=== PATIENT | female | born 1955 | race Caucasian/White ===

== ENCOUNTER 2021-03-19 09:57 | Outpatient (REF) | payer OTHER, SELFPAY ==
--- NOTE | ~2021-03-19 | MM_ITS ---
EXAMINATION: MM SCREENING DIGITAL BREAST TOMOSYNTHESIS, BILATERAL CLINICAL INFORMATION: Screening. Asymptomatic. The lifetime risk of breast cancer based on the Tyrer-Cuzick Model is 5.9%. COMPARISON: Mammography: September 09, 2019 and studies dating back to June 30, 2015 TECHNIQUE: Digital breast tomosynthesis is performed in both the craniocaudal and mediolateral oblique views along with computer-aided detection (CAD). Synthesized 2D images are generated from the tomosynthesis. FINDINGS: The breasts are heterogeneously dense, which may obscure small masses (ACR BI-RADS breast composition Category c). There are no significant masses, abnormal calcifications, or other abnormalities. MM/MM tomosynthesis screening BI IMPRESSION: There are no significant changes from prior study. ASSESSMENT: BI-RADS 1: Negative RECOMMENDATION: Routine annual mammography screening. This patient's information was entered into a reminder system with a target due date for their next mammogram.
== END 2021-03-19 09:58 | disposition home or self-care (01) ==
LOC: HO.MAMMO 09:57
PROVIDERS: PCP Internal Medicine; Visit Provider Internal Medicine
DX: Z12.31 Encounter for screening mammogram for malignant neoplasm of breast (principal)
CPT/HCPCS: 77063; 77067

== ENCOUNTER 2022-03-21 10:21 | Outpatient (REF) | payer OTHER, SELFPAY ==
--- NOTE | ~2022-03-21 | MM_ITS ---
EXAMINATION: MM SCREENING DIGITAL BREAST TOMOSYNTHESIS, BILATERAL CLINICAL INFORMATION: Screening. Asymptomatic. The lifetime risk of breast cancer based on the Tyrer-Cuzick Model is 5%. COMPARISON: Mammography: 03/19/2021, 09/09/2019, 09/05/2018, 09/02/2017 TECHNIQUE: Digital breast tomosynthesis is performed in both the craniocaudal and mediolateral oblique views along with computer-aided detection (CAD). Synthesized 2D images are generated from the tomosynthesis. FINDINGS: There are scattered areas of fibroglandular density (ACR BI-RADS breast composition Category b). There are scattered minor bilateral asymmetries similar to prior studies. There are scattered shifting fibroglandular parenchymal densities related to positioning. There is no significant mass or developing density or interval architectural abnormality. Intramammary nodes are again noted bilateral upper outer quadrants. No abnormal calcifications. Skin contours are smooth. MM/MM tomosynthesis screening BI IMPRESSION: No significant changes from prior studies. ASSESSMENT: BI-RADS 2: Benign RECOMMENDATION: Routine annual mammography screening. This patient's information was entered into a reminder system with a target due date for their next mammogram.
== END 2022-03-21 10:22 | disposition home or self-care (01) ==
LOC: HO.MAMMO 10:21
PROVIDERS: PCP Internal Medicine; Visit Provider Internal Medicine
DX: Z12.31 Encounter for screening mammogram for malignant neoplasm of breast (principal)
CPT/HCPCS: 77063; 77067

== ENCOUNTER 2023-04-19 13:47 | Outpatient (REF) | payer MEDICARE, SELFPAY ==
--- NOTE | ~2023-04-19 | MM_ITS ---
EXAMINATION: MM SCREENING DIGITAL BREAST TOMOSYNTHESIS, BILATERAL CLINICAL INFORMATION: Screening. Asymptomatic. The lifetime risk of breast cancer based on the Tyrer-Cuzick Model is 5%. COMPARISON: Mammography: 03/21/2022, 03/19/2021, 09/09/2019, 09/05/2018 TECHNIQUE: Digital breast tomosynthesis is performed in both the craniocaudal and mediolateral oblique views along with computer-aided detection (CAD). Synthesized 2D images are generated from the tomosynthesis. FINDINGS: There are scattered areas of fibroglandular density (ACR BI-RADS breast composition Category b). Parenchymal pattern is similar to prior studies and there is no developing density or architectural abnormality. Scattered minor asymmetries are similar to prior exams. Again, there is benign nodularity intramammary nodes bilateral posterior upper outer quadrant. There are no significant masses, abnormal calcifications, or other abnormalities. The axilla and skin contours are unremarkable. MM/MM tomosynthesis screening BI IMPRESSION: No mammographic evidence of malignancy. ASSESSMENT: BI-RADS 2: Benign RECOMMENDATION: Routine annual mammography screening. This patient's information was entered into a reminder system with a target due date for their next mammogram.
== END 2023-04-19 13:48 | disposition home or self-care (01) ==
LOC: HO.MAMMO 13:47
PROVIDERS: PCP Internal Medicine; Visit Provider Internal Medicine
DX: Z12.31 Encounter for screening mammogram for malignant neoplasm of breast (principal)
CPT/HCPCS: 77063; 77067

== ENCOUNTER 2024-05-29 14:10 | Outpatient (REF) | payer MEDICARE, SELFPAY | END 2024-05-29 14:11 | disposition home or self-care (01) | LOC: HO.MAMMO 14:10 | PROVIDERS: PCP Internal Medicine; Visit Provider Internal Medicine | DX: Z12.31 Encounter for screening mammogram for malignant neoplasm of breast (principal) | CPT/HCPCS: 77063; 77067 ==

== ENCOUNTER → 2024-05-29 14:45 | Outpatient (BNV) | payer MEDICARE, SELFPAY | PROVIDERS: PCP Internal Medicine; Visit Provider Radiology Diagnostic Radiology | DX: Z12.31 Encounter for screening mammogram for malignant neoplasm of breast (principal) | CPT/HCPCS: 77063; 77067 ==

== ENCOUNTER 2025-06-02 13:34 | Outpatient (REF) | payer MEDICARE, SELFPAY ==
--- OUTSIDE RECORDS SUMMARY | 2025-06-02 13:48 | XMS_ITS | Clinical Summary ---
Author Organization [facility] Address [address] [place] [phone] Phone Care Team Providers Care Cattle Examiner Name Role Phone Nisha Calix MD Primary Care Provider + Allergies No known active allergies Medications amoxicillin-cl avulanate (AUGMENTIN) 875-125 mg per tablet Take 1 tablet by mouth every 12 (twelve) hours. for 7 days 5 Active FLUoxetine (PROzac) 20 mg tablet Take 1 tablet (20 mg total) by mouth 1 (one) time each day. 5 Active fluticasone propion-salmet Thalia (ADVAIR DISKUS) 500-50 mcg/dose diskus inhaler 5 Active Wixela Inhub 250-50 mcg/dose diskus inhaler 1 puff inhalation twice a day 90 days 5 Active Wixela Inhub 100-50 mcg/dose diskus inhaler 1 puff every 12 (twelve) hours. 5 Active nystatin (MYCOSTATIN) 100,000 unit/mL suspension SWISH AND SWALLOW 5ML FOUR TIMES A DAY FOR 10 DAYS. 5 Active nystatin-triam cinolone (MYCOLOG II) cream APPLY EXTERNALLY TWICE A DAY FOR 30 DAYS 5 Active predniSONE (DELTASONE) 10 mg tablet PLEASE SEE ATTACHED FOR DETAILED DIRECTIONS 5 Active montelukast (SINGULAIR) 10 mg tablet Take 1 tablet (10 mg total) by mouth 1 (one) time each day in the evening. 30 each 5 06/05/20 25 Active montelukast (SINGULAIR) 10 mg tablet Take 1 tablet (10 mg total) by mouth 1 (one) time each day in the evening. 5 05/06/20 25 Discontinu ed(Reorder ) Encounters Date Type Department Care Team Description 05/06/2025 10:30 AM EDT Office Visit [address] [place] [address] Alok Paige MD Moderate asthma without complication, unspecified whether persistent (Primary Dx); TIFFANIE (obstructive sleep apnea); Seasonal allergic rhinitis due to pollen; Obesity (BMI 30-39.9) from Last 3 Months Surgical History Surgery Date Site/Laterality Comments TUBAL LIGATION 1986 PROCEDURE: HISTORICAL TUBAL LIGATION CHOLECYSTECTOMY 2003 PROCEDURE: LAPAROSCOPY, CHOLECYSTECTOMY TONSILLECTOMY PROCEDURE: HISTORICAL TONSILLECTOMY COLONOSCOPY 07/11/2019 PROCEDURE: HISTORICAL COLONOSCOPY; COMMENT: diverticulosis Medical History Medical History Date Comments Anxiety DX:Anxiety Migraines DX:Migraines Morbid obesity with BMI of 4 0.0-44.9, adult ([facility] V24, [facility] V28) DX:Morbid obesity wit h BMI of 40.0-44.9, adult ([facility]) Family History Medical History Relation Name Comments Diabetes Father COPD, smokeer Relation Name Status Comments Brother Alive Father Maternal Grandfather Maternal Grandmother Mother Paternal Grandfather Paternal Grandmother Sister 1 Alive Sister 2 Alive Sister 3 Alive Social History Tobacco Use Types Packs/Day Years Used Date Smoking Tobacco: Never Passive Smoke Exposure: Never Smokeless Tobacco: Never Alcohol Use Standard Drinks/Week Comments Yes 0 (1 standard drink = 0.6 oz pur e alcohol) Comments Unknown Sex and Gender Information Value Date Recorded Sex Assigned at Not on file Legal Sex Female 9:48 PM EST Gender Identity Not on file Sexual Orientation Not on file Obstetrics History Last Filed Vital Signs Vital Sign Reading Time Taken Comments Blood Pressure 120/68 05/06/2025 10:17 AM EDT Pulse 85 05/06/2025 10:17 AM EDT Temperature 35.6 C (96 F) 05/06/2025 10:17 AM EDT Respiratory Rate 18 05/06/2025 10:17 AM EDT Oxygen Saturation 96% 05/06/2025 10:17 AM EDT Inhaled Oxygen Concentration - - Weight 90.1 kg (198 lb 9.6 oz) 05/06/2025 10:17 AM EDT Height 167.6 cm (5' 6 ) 05/06/2025 10:17 AM EDT Body Mass Index 32.05 05/06/2025 10:17 AM EDT Plan of Treatment Upcoming Encounters Date Type Department Care Team (Late st Contact Info) Description 08/11/2025 10:45 AM EDT Ancillary Procedure Pulmonolgy - [place] [address] [phone] 08/11/2025 11:30 AM EDT [facility] [address] [phone] Alok Paige MD [address] [id number] Health Maintenance Due Date Last Done Comments Breast Cancer Screening 1955 DTaP,Tdap,and Td Vaccines (1 - Tdap) 1976 Pneumococcal Vaccine: 50+ Ye ars (1 of 2 - PCV) 1976 Cervical Cancer Screening: HPV 1978 Zoster Vaccines (1 of 2) 2007 RSV Immunization Adult Patie nts (1 - Risk 60-74 years 1-dose series) 2017 COVID-19 Vaccine ( - 2023-2 5 season) 2024 Cholesterol Screening (Lipid Panel) 08/30/2024 Colorectal Cancer Screening: Colonoscopy 08/30/2024 Falls Risk Assessment 08/30/2024 Hepatitis C Screening 08/30/2024 Medicare Annual Wellness Visit 08/30/2024 Osteoporosis Screening (Bone Density Screening) 08/30/2024 Social Influencers of Health Screening 08/30/2024 Depression Screening 10/30/2024 Influenza Vaccine (#1) 2025 HIB Vaccines Aged Out No longer eligi ble based on patient's age to complete this topic HPV Vaccines Aged Out No longer eligi ble based on patient's age to complete this topic Hepatitis A Vaccines Aged Out No long er eligible based on patient's age to complete this topic Hepatitis B Vaccines Aged Out No long er eligible based on patient's age to complete this topic IPV Vaccines Aged Out No longer eligi ble based on patient's age to complete this topic MMR Vaccines Aged Out No longer eligi ble based on patient's age to complete this topic Meningococcal ACWY Vaccine Aged Out N o longer eligible based on patient's age to complete this topic Meningococcal B Vaccine Aged Out No l onger eligible based on patient's age to complete this topic RSV Immunization Patients Un niranjan 20 months Aged Out No longer eligible b ased on patient's age to complete this topic Varicella Vaccines Aged Out No longer eligible based on patient's age to complete this topic Procedures Procedure Name Priority Date/Time Associated Diagnosis Comments CBC WITH AUTO DIFFERENTIAL Routine 05/06/2025 10:59 AM EDT Moderate asthma without complication, unspecified whether persistent C-REACTIVE PROTEIN Routine 05/06/2025 10 :59 AM EDT Moderate asthma without complication, unspecified whether persistent CBC AND DIFFERENTIAL Routine 05/06/2025 10:59 AM EDT Moderate asthma without complication, unspecified whether persistent from Last 3 Months Results * (ABNORMAL) CBC auto differential (05/06/2025 10:59 AM EDT) WBC 6.7 4.8 - 10.8 K/mcL LAB HEMETOLOGY METHOD 05/06/2025 2:16 PM EDT [facility] RBC 4.40 3.80 - 4.80 M/mcL LAB HEMETOLOGY METHOD 05/06/2025 2:16 PM EDT [facility] Hemoglobin 12.8 11.5 - 16.0 g/dL LAB HEMETOLOGY METHOD 05/06/2025 2:16 PM EDT [facility] Hematocrit 39.8 35.0 - 47.0 % LAB HEMETOLOGY METHOD 05/06/2025 2:16 PM EDT [facility] MCV 91.5 79.0 - 98.0 FL LAB HEMETOLOGY METHOD 05/06/2025 2:16 PM EDT [facility] MCH 29.4 27.0 - 32.0 pcg LAB HEMETOLOGY [facility] M[facility]C 32.2 32.0 - 37.0 g/dL LAB HEMETOLOGY METHOD [facility]25 [facility] RDW 14.7 11.0 - 15.0 % LAB HEMETOLOGY METHOD 05/06/2025 2:16 PM EDT [facility] Platelets 344 130 - 400 K/mcL LAB HEMETOLOGY METHOD 05/06/2025 2:16 PM [facility] MPV 9.5 7.0 - 11.0 FL LAB HEMETOLOGY METHOD 05/06/2025 2:16 PM [facility] NRBC 0.0 <1.0 % LAB [facility]EMETOLOGY METHOD [facility]06[facility]25 [facility] NRBC Absolute 0.00 <0.10 K/mcL LAB HEMETOLOGY METHOD 05/06/2025 2:16 PM [facility] Neutrophils Relative 50.7 % LAB HEMETOLOGY METHOD 05/06/2025 2:16 PM [facility] Lymphocytes Relative 25.8 % LAB HEMETOLOGY METHOD 05/06/2025 2:16 PM [facility] Monocytes Relative 8.8 % LAB HEMETOLOGY METHOD 05/06/2025 2:16 PM [facility] Eosinophils Relative 13.1 % LAB HEMETOLOGY METHOD 05/06/2025 2:16 PM [facility] Basophils Relative 1.3 % LAB HEMETOLOGY METHOD 05/06/2025 2:16 PM [facility] Immature Granulocytes Relative 0.3 % LAB HEMETOLOGY METHOD 05/06/2025 2:16 PM EDT [facility] Neutrophils Absolute 3.42 1.50 - 7.00 K/[facility] LAB HEMETOLOGY METHOD 05/06/2025 2:16 PM EDT [facility] Lymphocytes Absolute 1.74 1.00 - 5.00 K/[facility] LAB HEMETOLOGY METHOD 05/06/2025 2:16 PM EDT [facility] Monocytes Absolute 0.59 0.20 - 1.00 K/[facility] LAB HEMETOLOGY METHOD 05/06/2025 2:16 PM EDT [facility] Eosinophils Absolute 0.88(H) 0.00 - 0.50 K/[facility] LAB HEMETOLOGY METHOD 05/06/2025 2:16 PM EDT [facility] Basophils Absolute 0.09 0.00 - 0.20 K/[facility] LAB HEMETOLOGY METHOD 05/06/2025 2:16 PM EDT [facility] Immature Granulocytes Absolute 0.02 0.00 - 0.03 K/[facility] LAB HEMETOLOGY METHOD 05/06/2025 2:16 PM EDT [facility] Blood Venous blood specimen / Unknown Venipuncture / Unknown 05/06/2025 10:59 AM EDT 05/06/2025 10:59 AM EDT us Alok Paige MD LAB BLOOD ORDERABLES Final R esult [facility] [address] [place] [address], * (ABNORMAL) C-reactive protein (05/06/2025 10:59 AM EDT) C-Reactive Protein 0.76(H) <=0.50 mg/dL LAB CHEMISTRY METHOD 05/06/2025 3:48 PM EDT [facility] Blood Venous blood specimen / Unknown Venipuncture / Unknown 05/06/2025 10:59 AM EDT 05/06/2025 10:59 AM EDT us Alok Paige MD LAB BLOOD ORDERABLES Final R esult [facility] [address] [place] [address], from Last 3 Months Insurance [employer] MEDIC[employer] ADVANTAGE Care Teams Cattle Examiner Relationship Specialty Start Date End Date Nisha Calix MD [address] [place] [id number] PCP - General Internal Medicine 01/19/17
--- OUTSIDE RECORDS SUMMARY | 2025-06-02 13:48 | XMS_ITS | Clinical Summary ---
Author Organization [facility] Address [address] [place] [phone] Phone Care Team Providers Care Real Estate Appraiser Name Role Phone Pcp, Unknown Primary Care Provider Unavailabl e Social History Tobacco Use Types Packs/Day Years Used Date Smoking Tobacco: Never Assessed Education Answer Date Recorded Are you interested in more education? Not on darrius e 02/25/2023 Are you concerned about learning? Not on file 02/25/2023 No 02/25/2023 No 02/25/2023 Digital Access Answer Date Recorded No 03/26/2023 No 03/26/2023 No 03/26/2023 Reliable internet access at home? Not on file 03/26/2023 Device with a working camera? Not on file Comments Unknown Sex and Gender Information Value Date Recorded Sex Assigned at Not on file Legal Sex Female 12:43 PM EDT Gender Identity Not on file Sexual Orientation Not on file Plan of Treatment Health Maintenance Due Date Last Done Comments Adult Td,Tdap Booster 1955 LIPID PANEL 1957 DEPRESSION SCREENING 1969 SMOKING Hx and SMOKELESS TOB ACCO SCREENING 1970 HEPATITIS C SCREENING 1975 MAMMOGRAM 1997 COLOGUARD 2002 COLONOSCOPY 2002 COLORECTAL CANCER SCREENING 2002 FIT TEST 2002 FOBT 2002 SIGMOIDOSCOPY 2002 VIRTUAL COLONOSCOPY 2002 PNEUMOCOCCAL VACCINES (50+ y ears) (1 of 1 - PCV) 2007 ZOSTER VACCINES (1 of 2) 2007 OSTEOPOROSIS SCREENING INITI AL (ONE-TIME) 2022 COVID-19 VACCINE (2023-2 5 season) 2024 RSV VACCINE (1 - 1-dose 75+ series) 2032 HEPATITIS A VACCINES Aged Out No long er eligible based on patient's age to complete this topic HIB VACCINES Aged Out No longer eligi ble based on patient's age to complete this topic MENINGOCOCCAL VACCINES (ACWY) Aged Out No longer eligible based on patient's age to complete this topic MENINGOCOCCAL VACCINES (B) Aged Out N o longer eligible based on patient's age to complete this topic Medical Devices Not on file [place] [id number] [facility] NET PARTIAL MEDICARE PART A & B * Guarantor: Sorin Erika Account Type Relation to Patient Date of Phone Billing Address Personal/Family Self 1955 [address] [id number] NET PARTIAL MEDICARE PART A & B [employer] NET PARTIAL MEDICARE PART A & B [facility] PARTIAL MEDICARE PART A & B [employer] NET PARTIAL MEDICARE PART A & B [employer] NET PARTIAL MEDICARE PART A & B [employer] NET PARTIAL MEDICARE PART A & B [facility] NET PARTIAL MEDICARE PART A & B Care Teams Real Estate Appraiser Relationship Specialty Start Date End Date Pcp, Unknown PCP - General 05/06/22 Additional Source Comments The information contained in this document represents components of the legal health record. It is not the complete legal health record.[facility]
--- OUTSIDE RECORDS SUMMARY | 2025-06-02 13:48 | XMS_ITS | Continuity of Care Document ---
Author Organization [facility] Address [address] [address] Insurance Providers Payer Plan Claims Address Claims Phone Policy Number Group Number Relation Employer Guarantor Name Guarantor Guarantor Address Guarantor Phone [employer] [address] [address], [place] [address] tel:[phone] [facility] HEALTH PLAN [employer] [facility] PLAN [address] [address], [place], [place] tel:[phone] 1 [employer] RE MEDIC ARE [facility] [address] [address] [address] tel:[phone] Problems Unknown Problems Results Test Result Date/Time Value / Unit Interp. Refere mse Range Comp. Metabolic Panel (14)[[id number]] Collected: 09/03/2024 03:15 PM Specimen Received: 09/03/2024 05:00 AM Source: [facility] Glucose [[id number]] 09/04/2024 04:30 AM 92 mg/dL 70-99 mg/dL BUN [[id number]] 09/04/2024 04:28 AM 15 mg/dL 8-2 7 mg/dL Creatinine [[id number]] 09/04/2024 04:30 AM 0.91 mg/dL 0.57-1.00 mg/dL eGFR [[id number]] 09/04/2024 04:30 AM 69 mL/min/1.73 >59 mL/min/1.73 BUN/Creatinine Ratio [[id number]] 09/04/2024 04:30 AM 16 12-28 Sodium [[id number]] 09/04/2024 04:16 AM 139 mmol/L 134-144 mmol/L Potassium [[id number]] 09/04/2024 04:17 AM 4.6 mmol/L 3.5-5.2 mmol/L Chloride [[id number]] 09/04/2024 04:10 AM 101 mmol/L 96-106 mmol/L Carbon Dioxide, Total [[id number]] 09/04/2024 04:28 AM 22 mmol/L 20-29 mmol/L Calcium [[id number]] 09/04/2024 04:30 AM 9.2 mg/dL 8.7-10.3 mg/dL Protein, Total [[id number]] 09/04/2024 04:31 AM 6.9 g/dL 6.0-8.5 g/dL Albumin [[id number]] 09/04/2024 04:30 AM 4.2 g/dL 3.9-4.9 g/dL Globulin, Total [[id number]] 09/04/2024 04:31 AM 2.7 g/dL 1.5-4.5 g/dL Bilirubin, Total [[id number]] 09/04/2024 04:30 AM 0.5 mg/dL 0.0-1.2 mg/dL Alkaline Phosphatase [[id number]] 09/04/2024 04:33 AM 72 IU/L 44-121 IU/L AST (SGOT) [[id number]] 09/04/2024 04:30 AM 30 IU/L 0-40 IU/L ALT (SGPT) [[id number]] 09/04/2024 04:28 AM 44 IU/L H 0-32 IU/L Lipid Panel[[id number]] Collected: 09/03/2024 03:15 PM Specimen Received: 09/03/2024 05:00 AM Source: [facility] Cholesterol, Total [[id number]] 09/04/2024 05:17 AM 192 mg/dL 100-199 mg/d L Triglycerides [[id number]] 09/04/2024 04:34 AM 125 mg/dL 0-149 mg/dL HDL Cholesterol [[id number]] 09/04/2024 05:16 AM 60 mg/dL >39 mg/dL VLDL Cholesterol Chandana [[id number]] 09/04/2024 05:17 AM 22 mg/dL 5-40 mg/dL LDL Chol Calc ([facility]) [[id number]] 09/04/2024 05:17 AM 110 mg/dL H 0-99 mg/dL Hemoglobin A1c[[id number]] Collected: 09/03/2024 03:15 PM Specimen Received: 09/03/2024 05:00 AM [facility] A[facility] [[id number]] 09/04/2024 04:08 AM 5.9 % H 4.8-5.6 % . Prediabetes: 5.7 - 6.4 Dorene betes: >6.4 Glycemic control for adults with diabetes: 7.0 Allergies, adverse reactions, alerts No known allergies and adverse reactions Medications No administered medications reported Vital Signs No vital signs reported Social History No smoking Hx information available
--- OUTSIDE RECORDS SUMMARY | 2025-06-02 13:48 | XMS_ITS | Patient Health Record ---
Author Organization [facility] Address [address] [place] [phone] Care Team Providers Care [employer] Dean Name Role Phone Andrzej Cabrera Unavailable [phone] Reason For Referral No Information Plan Of Treatment No Information
--- OUTSIDE RECORDS SUMMARY | 2025-06-02 13:48 | XMS_ITS | Continuity of Care Document ---
Author Organization [facility] Address [address] [address] Insurance Providers Payer Plan Claims Address Claims Phone Policy Number Group Number Relation Employer Guarantor Name Guarantor Guarantor Address Guarantor Phone [employer] [address] [address], [place] [address] tel:[phone] [facility] HEALTH PLAN [place] [facility] [address] [address], [place], [place] tel:[id number] 1 MEDICA RE MEDIC ARE [facility] [address] [address] [address] tel:[phone] Problems Unknown Problems Results Test Result Date/Time Value / Unit Interp. Refere nde Range Comp. Metabolic Panel (14)[[id number]] Collected: 09/03/2024 03:15 PM Specimen Received: 09/03/2024 05:00 AM Source: [facility] Glucose [[id number]] 09/04/2024 04:30 AM 92 mg/dL 70-99 mg/dL BUN [[id number]] 09/04/2024 04:28 AM 15 mg/dL 8-2 7 mg/dL Creatinine [[id number]] 09/04/2024 04:30 AM 0.91 mg/dL 0.57-1.00 mg/dL eGFR [[id number]] 09/04/2024 04:30 AM 69 mL/min/1.73 >59 mL/min/1.73 BUN/Creatinine Ratio [[id number]] 09/04/2024 04:30 AM 16 12-28 Sodium [340152] 09/04/2024 04:16 AM 139 mmol/L 134-144 mmol/L Potassium [[id number]] 09/04/2024 04:17 AM 4.6 mmol/L 3.5-5.2 mmol/L Chloride [[id number]] 09/04/2024 04:10 AM 101 mmol/L 96-106 mmol/L Carbon Dioxide, Total [[id number]] 09/04/2024 04:28 AM 22 mmol/L 20-29 mmol/L Calcium [[id number]] 09/04/2024 04:30 AM 9.2 mg/dL 8.7-10.3 mg/dL Protein, Total [[id number]] 09/04/2024 04:31 AM 6.9 g/dL 6.0-8.5 g/dL Albumin [[id number]] 09/04/2024 04:30 AM 4.2 g/dL 3.9-4.9 g/dL Globulin, Total [[id number]] 09/04/2024 04:31 AM 2.7 g/dL 1.5-4.5 g/dL Bilirubin, Total [[id number]] 09/04/2024 04:30 AM 0.5 mg/dL 0.0-1.2 mg/dL Alkaline Phosphatase [[id number]] 09/04/2024 04:33 AM 72 IU/L 44-121 IU/L AST (SGOT) [[id number]] 09/04/2024 04:30 AM 30 IU/L 0-40 IU/L ALT (SGPT) [[id number]] 09/04/2024 04:28 AM 44 IU/L H 0-32 IU/L Lipid Panel[[id number]] Collected: 09/03/2024 03:15 PM Specimen Received: 09/03/2024 05:00 AM Source: [facility] Cholesterol, Total [[id number]] 09/04/2024 05:17 AM 192 mg/dL 100-199 mg/d L Triglycerides [[id number]] 09/04/2024 04:34 AM 125 mg/dL 0-149 mg/dL HDL Cholesterol [[id number]] 09/04/2024 05:16 AM 60 mg/dL >39 mg/dL VLDL Cholesterol Chandana [[id number]] 09/04/2024 05:17 AM 22 mg/dL 5-40 mg/dL LDL Chol Calc ([facility]) [[id number]] 09/04/2024 05:17 AM 110 mg/dL H 0-99 mg/dL Hemoglobin A1c[[id number]] Collected: 09/03/2024 03:15 PM Specimen Received: 09/03/2024 05:00 AM [facility] Hemoglobin A1c [[id number]] 09/04/2024 04:08 AM 5.9 % H 4.8-5.6 % . Prediabetes: 5.7 - 6.4 Dorene betes: >6.4 Glycemic control for adults with diabetes: 7.0 Allergies, adverse reactions, alerts No known allergies and adverse reactions Medications No administered medications reported Vital Signs No vital signs reported Social History No smoking Hx information available
== END 2025-06-02 13:35 | disposition home or self-care (01) ==
LOC: HO.MAMMO 13:34
PROVIDERS: PCP Internal Medicine; Visit Provider Internal Medicine
DX: Z12.31 Encounter for screening mammogram for malignant neoplasm of breast (principal)
CPT/HCPCS: 77063; 77067

== ENCOUNTER → 2025-06-02 14:00 | Outpatient (BNV) | payer MEDICARE, SELFPAY | PROVIDERS: PCP Internal Medicine; Visit Provider Internal Medicine | DX: Z12.31 Encounter for screening mammogram for malignant neoplasm of breast (principal) | CPT/HCPCS: 77063; 77067 ==